=== PATIENT | male | born 1995 ===

== ENCOUNTER 2016-12-22 22:49 | Emergency (ER) | payer OTHER ==
[2016-12-22 23:24] VITALS: BP 123/70; RESP 20; TEMP 98.5
[2016-12-23] MEDS ORDERED: Lidocaine 1% Inj (20ml) ONE (00:28)
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
[2016-12-23 01:35] VITALS: PULSE 74
[2016-12-23 02:38] VITALS: O2SAT 97
== END 2016-12-23 01:21 | disposition home or self-care (01) ==
LOC: C.ER 22:49
DX: S01.511A Laceration without foreign body of lip, initial encounter (principal); Y08.89XA Assault by other specified means, initial encounter